=== PATIENT | female | born 1965 | race Caucasian/White ===

== ENCOUNTER → 2017-10-09 | Outpatient (CLI) | payer BC ==
[2017-10-09 12:28] LABS: BASO # 0.1 x10^3/uL (0.0-0.2); BASO % 1 % (0-3); EOS # 0.2 x10^3/uL (0.0-0.7); EOS % 5 % (0-3); HEMATOCRIT 42.5 % (36.0-47.0); HEMOGLOBIN 14.5 g/dL (12.0-15.5); LYMPH # 0.7 x10^3/uL (1.0-4.8); LYMPH % 15 % (24-48); MEAN CORPUSCULAR HEMOGLOBIN 32 pg (25-35); MEAN CORPUSCULAR HGB CONC 34 g/dL (31-37); MEAN CORPUSCULAR VOLUME 93 fL (79-100); MONO # 0.8 x10^3/uL (0.0-1.1); MONO % 17 % (0-9); NEUT # 2.8 x10^3uL (1.8-7.7); NEUT % 62 % (31-73); PLATELET COUNT 293 x10^3/uL (140-400); RED BLOOD COUNT 4.58 x10^6/uL (3.50-5.40); RED CELL DISTRIBUTION WIDTH 13.1 % (11.5-14.5); WHITE BLOOD COUNT 4.6 x10^3/uL (4.0-11.0)
[2017-10-09 12:59] LABS: ALBUMIN 3.4 g/dL (3.4-5.0); CALCIUM 8.8 mg/dL (8.5-10.1); GFR 58.7; MAGNESIUM 1.8 mg/dL (1.8-2.4); POTASSIUM 4.5 mmol/L (3.5-5.1); TOTAL BILIRUBIN 0.5 mg/dL (0.2-1.0); TOTAL PROTEIN 6.8 g/dL (6.4-8.2)
[2017-10-10 02:11] LABS: HEMOGLOBIN A1C 5.1 % (4.8-5.6)
== END | disposition home or self-care (01) ==
LOC: LAB 11:28
PROVIDERS: ATTEND Internal Medicine Pulmonary Disease
DX: G47.62 Sleep related leg cramps (principal); G72.9 Myopathy, unspecified; R06.00 Dyspnea, unspecified
CPT/HCPCS: 36415; 80053; 82306; 83036; 83540; 83735; 84443; 85025

== ENCOUNTER → 2017-12-14 | Outpatient (CLI) | payer BC ==
--- NOTE | 2017-12-14 13:08 | RAD ---
MR#: [id number] Date of Study: 12/14/2017 Ordering Physician: DREW KAM, Referring Physician: SANDRA CARVALHO Tech: RT Bakari Ellison) (N) APPROVED REPORT Test Type: Exercise Stress Nurse/Tech: Marry Hubbard RN Test Indications: Dyspnea on exertion, chest pain Cardiac History: Asthma,, No known cardiac Medications: See Electronic Medical Record Medical History: See Electronic Medical Record Resting ECG: SR Resting Heart Rate: 64 bpm Resting Blood Pressure: 104/71mmHg Pretest Chest Pain: No chest pain Nurse/Tech Notes S1,S2. Lungs clear to auscultation. Consent: The procedure was explained to the patient in lay terms. Informed consent was witnessed. Warren eout was entered into [employer]. History and Stress Test performed by RT Alma (Bharathi) (N) Stress Symptoms Dyspnea POST EXERCISE Reason for Termination: Reached target heart rate, Dyspnea Target HR: Yes Max HR: 169 bpm 100% of Maximum Predicted HR: 169 bpm Exercise duration: 9:55 min:sec, 4 Stage Exercise capacity: 13.4METs Max Blood Pressure: 131/72mmHg Blood Pressure response to exercise: Normal blood pressure response during stress. Heart Rate response to exercise: WNL Chest Pain: No. Arrhythmia: No. INTERPRETATION Stress EKG Conclusion: The resting EKG showed a sinus rhythm with mild nonspecific ST segment changes . The stress EKG showed no significant changes from baseline. No EKG evidence of stressed induced ischemia. Imaging Protocol IMAGE PROTOCOL: Rest Tc-99m/stress Tc-99m 1 day Rest: Stress: Viability: Radiopharm.Tc99m XwgsohgqsVy11g Sestamibi Dose10.5mCi 35.2mCi Duration 15min. 12min. Img Date 12/14/2017 12/14/2017 Inj-Img Yves26vru. 60min. Rest Admin Site:IV - Right ForearmAdministrator:RT Alma (Bharathi)(N) Stress Admin Site: IV - Right ForearmAdministrator: RT Bakari Marquez)(N) STRESS DATA End Diast. Vol.49.0mlAv. Heart Rate84.0bpm End Syst. Vol.2.0mlCO Index BSA0.0L/min Myocardial Mass92.0gEject. Ufraadqc47.0% Stress Rates Pk. Fill Rate4.58EDV/secLVtime Pk. Fill 187.92msec Pk. Empty Rate5.94ESV/secLVtime Pk. Eject82.00msec 1/3 Pk. Fill1.21EDV/sec Stress Scores Regional WT0.00Summed WT0.00 Regional WM0.00Summed WM0.00 LV Perfusion The stress images showed no significant defects. The rest images showed no significant defects. Nuclear imaging shows no reversible ischemia or infarct. Wall Motion Normal left ventricular systolic function with an ejection fraction of greater than 70%. LV Perf. Quant 17 Seg. SSS0.00 17 Seg. SRS0.00 17 Seg. SDS0.00 Stress Defect Extent (% LAD)0.00Rest Defect Extent (% LAD)0.00Rev. Defect Extent (% LAD)0.00 Stress Defect Extent (% LCX) 0.00Rest Defect Extent (% LCX)0.00Rev. Defect Extent (% LCX)0.00 Stress Defect Extent (% RCA)0.00Rest Defect Extent (% RCA)0.00Rev. Defect Extent (% RCA)0.00 Stress Defect Extent (% RASHAWN)0.00Rest Defect Extent (% RASHAWN)0.00Rev. Defect Extent (% RASHAWN)0.00 Conclusion 1. Good exercise tolerance. 2. No chest pain with exertion. 3. No EKG evidence of stressed induced ischemia. 4. Nuclear imaging shows no reversible ischemia or infarct. 5. Normal left ventricular systolic function with an ejection fraction of greater than 70%. 6. Low risk exercise nuclear stress test. Signed by : Micha Dove MD Electronically Approved : 12/14/2017 13:07:20
--- NOTE | 2017-12-14 15:38 | CARD ---
MR#: [id number] Date of Study: 12/14/2017 Ordering Physician: DREW KAM, Referring Physician: DREW KAM Tech: Joan Prince RDCS APPROVED REPORT EXAM: Two-dimensional and M-mode echocardiogram with Doppler and color Doppler. Other Information Quality : Good INDICATION Dyspnea On Exertion 2D DIMENSIONS RVDd2.4 (2.9-3.5cm)Left Atrium(2D)3.0 (1.6-4.0cm) IVSd0.6 (0.7-1.1cm)Aortic Root(2D)2.1 (2.0-3.7cm) LVDd4.4 (3.9-5.9cm)LVOT Diameter1.9 (1.8-2.4cm) PWd0.7 (0.7-1.1cm)LVDs2.9 (2.5-4.0cm) FS (%) 33.6 %SV55.8 ml LVEF(%)60.0 (>50%) Aortic Valve AoV Peak Won.161.3cm/sAoV VTI33.8cm AO Peak GR.10.4mmHgLVOT Peak Won.131.5cm/s LVOT VTI 27.87cmAO Mean GR.6mmHg JAY (VMAX)2.97zq6MTG (VTI)2.46cm2 Mitral Valve MV E Nzbrqdjr12.6cm/sMV DECEL TAYP892fv MV A Ihhlioja94.4cm/sMV AGI96tk E/A Ratio1.5MVA (PHT)3.45cm2 TDI E/Lateral E'7.5E/Medial E'9.6 Tricuspid Valve TR P. Sylszpxz643ju/sRAP BZFDRVTN6psOz TR Peak Gr.85cqVmEADY28cjJo Pulmonary Vein S1 Hfdphspi45.7cm/sD2 Rsermkpd22.4cm/s LEFT VENTRICLE The left ventricle is normal size. There is normal left ventricular wall thickness. The left ventricu lar systolic function is normal and the ejection fraction is within normal range. The Ejection Fracti on is 55-60%. There is normal LV segmental wall motion. The left ventricular diastolic function and f illing is normal for age. RIGHT VENTRICLE The right ventricle is normal size. The right ventricular systolic function is normal. ATRIA The left atrium size is normal. The right atrium size is normal. The interatrial septum is intact wit h no evidence for an atrial septal defect or patent foramen ovale as noted on 2-D or Doppler imaging. AORTIC VALVE The aortic valve is calcified but opens well. Doppler and Color Flow revealed no significant aortic r egurgitation. There is no significant aortic valvular stenosis. MITRAL VALVE The mitral valve is normal in structure and function. There is no evidence of mitral valve prolapse. There is no mitral valve stenosis. Doppler and Color-flow revealed trace mitral regurgitation. TRICUSPID VALVE The tricuspid valve is normal in structure and function. Doppler and Color Flow revealed trace to mil d tricuspid regurgitation. The PA pressure was estimated at 23 mmHg. There is no tricuspid valve sten osis. PULMONIC VALVE The pulmonary valve is normal in structure and function. Doppler and Color Flow revealed trace pulmon ic valvular regurgitation. There is no pulmonic valvular stenosis. GREAT VESSELS The aortic root is normal in size. The ascending aorta is normal in size. The IVC is normal in size a nd collapses >50% with inspiration. PERICARDIAL EFFUSION There is no evidence of significant pericardial effusion. Critical Notification Critical Value: No <Conclusion> The left ventricle is normal size. The left ventricular systolic function is normal and the ejection fraction is within normal range. The Ejection Fraction is 55-60%. There is normal left ventricular wall thickness. There is no significant aortic valvular stenosis. Doppler and Color Flow revealed no significant aortic regurgitation. Doppler and Color-flow revealed trace mitral regurgitation. Doppler and Color Flow revealed trace to mild tricuspid regurgitation. The PA pressure was estimated at 23 mmHg. Signed by : Micha Dove MD Electronically Approved : 12/14/2017 15:37:29
== END | disposition home or self-care (01) ==
LOC: NM 08:46
PROVIDERS: ATTEND Internal Medicine Cardiovascular Disease
DX: R06.09 Other forms of dyspnea (principal); R07.89 Other chest pain; J45.909 Unspecified asthma, uncomplicated
CPT/HCPCS: 78452; 93017; 93306; 96374; 96376; A9500

== ENCOUNTER → 2019-10-05 | Outpatient (CLI) | payer OTHER ==
[~2019-10-05] MED LIST: ACET325T9 PO; CHOL500021 PO; ESTR1TAB24 PO; IOHEXOL 180 MG/ML 10 ML VIAL. ONE; MULT-245 PO; NAPR-683 PO; PANT40TA77 PO; POTA10TA12 PO; methylPREDNISolone ACETATE 40 MG/ML VIAL. ONE; methylPREDNISolone ACETATE 80 MG/ML VIAL. ONE
--- NOTE | 2019-10-05 12:21 | PDOC2 ---
INITIAL PAIN CONSULT DATE OF SERVICE: DOS: DATE: 10/05/19 TIME: 12:14 CHIEF COMPLAINT: Chief Complaint: Low back and right lower extremity pain HISTORY OF PRESENT ILLNESS: 53-year-old female presents history of pain low back right lower extremity for about 2 months after bicycling and exercising. Patient reports no specific injury or accident that she is aware of. Patient reports pain is in the low back right lower extremity traveling into the posterior gluteus posterior thigh and calf to the level of the foot and toes at times mostly in the calf and the thigh patient describes the pain as aching burning radiating intermittent intensity but always present to some extent patient ports that sharp in the back as well as occasionally into the right lower leg and calf. Patient is on phy sical therapy also chiropractic treatment with some improvement only temporarily. Patient continues to exercise on her own and [employer] exercises well. Patient is tried prednisone Dosepaks also naproxen and Tylenol none of which have been decreasing the pain significantly. Patient rates her disability rating from 0-10 10 being the worst is a 6 with recreation 0 in all other rizwana gories except life support activities which is a 2 on a scale of 10 specifically with sleeping. Patient rates pain awakens her from sleep release twice a night does not affect her bowel bladder control but can affect her ability to walk. Patient not use any assistive devices to ambulate. Patient did have MRI scan lumbar spine showing mild disc desiccation and small posterior disc protrusion and annular fissure at L5-S1 without significant central spinal or neuroforaminal narrowing. PAST MEDICAL HISTORY: PMH: Crohn's disease, asthma, anemia PREVIOUS SURGERIES: Past Surgical Hx: Partial hysterectomy 2000 left inguinal hernia repair 1995 partial colectomy 2009 195 in 1989 appendectomy 2009 CURRENT MEDICATIONS: Current Meds: Active Scripts Medications Dose Route/Sig Max Daily Dose Days Date Category D3-50 (Cholecalciferol (Vitamin D3)) 50,000 Unit Capsule 50,000 Unit PO WEEKLY 10/05/19 Reported Pantoprazole Sodium (Pantoprazole Sodium) 40 Mg Tablet.dr 40 Mg PO DAILYAC PRN 10/05/19 Reported Multi Vitamin Daily (Multivitamin) 1 Each Tablet 1 Tab PO DAILY 30 10/05/19 Reported Klor-Con 10 (Potassium Chloride) 10 Meq Tablet.er 1 Tab PO DAILY 10/05/19 Reported Eemt Ds 1.25-2.5 Mg Tablet (Estrogen,Shanti/Me-Testosterone) 1 Each Tablet 1 Tab PO DAILY MDD 1 Tablet(s) 30 10/05/19 Reported Tylenol (Acetaminophen) 325 Mg Tablet 1-2 Tab PO QID 10/05/19 Reported Naprosyn (Naproxen) 500 Mg Tablet 1 Tab PO BID 30 10/05/19 Reported ALLERGIES; Allergies: Coded Allergies: infliximab (Verified Allergy, Intermediate, 10/05/19) Uncoded Allergies: SULFA (Allergy, Mild, SHORT OF BREATH, 12/14/17) FAMILY HISTORY: Family Hx: Diabetes, Crohn's disease SOCIAL HISTORY: Social Hx: Patient drinks alcohol about once or twice a week does not smoke, does not use any illegal illicit or recreational drugs is single lives locally in [facility] REVIEW OF SYSTEMS: ROS: Positive for those items mentioned in history of present illness is complete full and well-documented on patient's chart. PHYSICAL EXAM: VS: Blood pressure is 120/72 pulse 67 respirations 18 temperature 98.0 F height is 5 foot 4 inches weight is 139 pounds PE: PHYSICAL EXAMINATION: GENERAL: The patient is awake, alert, oriented, appropriate, very pleasant demeanor HEENT: Shows normocephalic, atraumatic. Extraocular movements are intact and symmetrical. Oral cavity: Mucous membranes moist and pink. Dentition is intact . NECK: Shows anterior throat supple without palpable lymphadenopathy noted. Swallow reflex symmetrical. CHEST: Shows normal on inspection. Breath sounds are clear bilaterally, no rales rhonchi or wheezes auscultated. HEART: Shows S1, S2 clear. No murmurs auscultated. ABDOMEN: Soft, nontender, nondistended. No palpable organomegaly is noted. No rebound or guarding demonstrated. BACK: Shows spine grossly in the midline. Normal-appearing cervical lordotic curvature. There is slightly increased thoracic kyphosis, some minor flattening of the lumbar lordotic curvature. Lumbar paraspinous muscles show symmetrical on inspection, on palpation shows some moderate tenderness diffusely throughout the upper, middle and lower distribution of the paraspinous muscles bilaterally without specific trigger points, without radiation of pain. The patient has good rotational motion of the lumbar spine, both laterally as well as extension and flexion without significant difficulty. No tenderness over the spinous processes, sacrum or sacroiliac regions. EXTREMITIES: Lower extremities show deep tendon reflexes 2+ in the patellar and tendo calcaneus tendons. Motor exam is 4 on a scale of 5 with right dorsiflexion, extension, quadriceps and hamstring flexion and 5/5 on the left. Peripheral pulses are 1+ posterior tibial. No peripheral edema is noted bilaterally. Lower extremities are warm and dry to touch, equal in color and appearance. Gaenslen's and Celso's maneuvers are negative as well. The patient is able to stand, stand on her toes without significant difficulty or loss of balance walks with a normal-appearing gait does not appear to favor the right or left lower extremity significantly and does not use any assistive devices to ambulate.. SKIN: Shows warm and dry, good turgor. No edema. No sores, rashes or bruising throughout. IMPRESSION: Impression: This is a 53-year-old female with approximate 2-month history increasing pain low back right lower extremity radicular fashion. MRI scan lumbar spine as noted History of Crohn's disease Plan: Options were discussed with the patient including conservative medical management physical therapies interventional techniques and she like to pursue interventional techniques. We discussed a lumbar epidural steroid injection his description as well as anatomical models to describe the procedure. Risks are then discussed including but not limited to bleeding infection possibility of epidural hematoma subsequent neurological compromise dural puncture headache spinal cord and or nerve damage side effects of steroid medication and poor results regarding pain control. Patient understands wished to proceed. Patient return to clinic in approximate 2 weeks for follow-up was counseled as to return appointment activity level and side effects to be aware. Procedure is lumbar epidural steroid injection under local anesthetic using sterile prep and drape at the L5-S1 level using C-arm fluoroscopic guidance in both AP and lateral views medications injected is 120 mg Depo-Medrol + 10 mL preservative-free normal saline and 2 mL contrast- condition at discharge is stable patient tolerated procedure well had no complications. ANTHONY RED MD Oct 05, 2019 12:21
== END | disposition home or self-care (01) ==
LOC: PNCL 10:21
PROVIDERS: ATTEND Anesthesiology
DX: M54.5 Low back pain (principal); M79.661 Pain in right lower leg; J45.909 Unspecified asthma, uncomplicated; Z88.2 Allergy status to sulfonamides; Z88.8 Allergy status to other drugs, medicaments and biological substances; Z98.890 Other specified postprocedural states; Z79.899 Other long term (current) drug therapy; Z83.3 Family history of diabetes mellitus
CPT/HCPCS: 62323; J1030; J1040; Q9965

== ENCOUNTER → 2019-10-19 | Outpatient (CLI) | payer OTHER ==
--- NOTE | 2019-10-19 09:58 | PDOC ---
Progress Note - Pain Clinic Date of Service: DOS: DATE: 10/19/19 TIME: 09:55 Diagnosis: Dx: Lumbar radiculopathy with lumbar degenerative disc disease History or Present Illness: HPI: 53-year-old female returns follow-up status post lumbar epidural to injection x1. Patient reports 100% improvement for a few days the injection now the pain is returning slightly in the low back and right lower extremity posterior gluteus posterior thigh posterior calf worse with activity exercising bicycle riding. Patient reports initially doing very well with increased activity with greater ease with walking doing work activities household activities recreational activities and bicycle riding patient ports he still doing well at night not waking her from sleep at night patient reports the pain is a 5 on a scale of 10 is worse over the past week 3 on average 0 is least is a 3 today patient ports in the low back posterior gluteus and right lower extremity described as tingling and burning with radiating pain in the leg also some aching pain in the low back itself. Patient reports no new motor or sensory deficits no new bowel or bladder incontinence or other complaints. Physical Exam: VS: Pressure is 119/69 pulse 63 respirations 18 temperature 98.6 F weight is 134 pounds PE: PHYSICAL EXAMINATION: GENERAL: The patient is awake, alert, oriented, appropriate, very pleasant demeanor HEENT: Shows normocephalic, atraumatic. Extraocular movements are intact and symmetrical. Oral cavity: Mucous membranes moist and pink. NECK: Shows anterior throat supple without palpable lymphadenopathy noted. Swallow reflex symmetrical. CHEST: Shows normal on inspection. Breath sounds are clear bilaterally. HEART: Shows S1, S2 clear. No murmurs auscultated. ABDOMEN: Soft, nontender, nondistended. No palpable organomegaly is noted. No rebound or guarding demonstrated. BACK: Shows spine grossly in the midline. Normal-appearing cervical lordotic curvature. There is slightly increased thoracic kyphosis, some minor flattening of the lumbar lordotic curvature. Lumbar paraspinous muscles show symmetrical on inspection, on palpation shows some moderate tenderness diffusely throughout the upper, middle and lower distribution of the paraspinous muscles bilaterally ,but without specific trigger points, without radiation of pain. The patient has good rotational motion of the lumbar spine, both laterally as well as extension and flexion without significant difficulty. No tenderness over the spinous processes, sacrum or sacroiliac regions. EXTREMITIES: Lower extremities show deep tendon reflexes 2+ in the patellar and tendo calcaneus tendons. Motor exam is 5 on a scale of 5 with right dorsiflexion, extension, quadriceps and hamstring flexion and 5/5 on the left. Peripheral pulses are 1+ posterior tibial. No peripheral edema is noted bilaterally. Lower extremities are warm and dry to touch, equal in color and appearance. SKIN: Shows warm and dry, good turgor. No edema. No sores, rashes or bruising throughout. Procedure: Procedure: Options were discussed with the patient. Patient will chart reviewed his rec urrent medication regimen updated current review of systems updated today as well. We will proceed with a second in the series lumbar epidural steroid injection today with fluoroscopic guidance. Risks were discussed including but not limited to: Bleeding, infection, possibility of epidural hematoma and subsequent neurological compromise, dural puncture, headaches, spinal cord and /or nerve damage, side effects of steroid medication, and poor results regarding pain control. Patient understands wished to proceed. Patient return to clinic in approximately 2 weeks for follow-up was counseled as to return appointment activity level and side effects to be aware of. Medication Injected: Med Injected: Procedure is lumbar epidural steroid injection under local anesthetic using sterile prep and drape at the L5-S1 level using C-arm fluoroscopic guidance in both AP and lateral views medications injected is 120 mg Depo-Medrol + 10 mL preservative-free normal saline and 2 mL contrast- condition at discharge is stable patient tolerated procedure well had no complications. Condition at Discharge: Condition at Discharge: Condition at discharge stable patient tolerated procedure well had no complications. ANTHONY RED MD Oct 19, 2019 09:58
== END | disposition home or self-care (01) ==
LOC: PNCL 09:18
PROVIDERS: ATTEND Anesthesiology
DX: M51.16 Intervertebral disc disorders with radiculopathy, lumbar region (principal); J45.909 Unspecified asthma, uncomplicated; Z88.2 Allergy status to sulfonamides; Z88.8 Allergy status to other drugs, medicaments and biological substances; Z79.899 Other long term (current) drug therapy; Z83.3 Family history of diabetes mellitus
CPT/HCPCS: 62323; J1030; J1040; Q9965

== ENCOUNTER → 2020-02-28 | Outpatient (CLI) | payer OTHER ==
[~2020-02-28] MED LIST changes: +CETI10TA74 PO; +GADOTERATE 7.5 MMOL/15ML VIAL. IVP ONE; +IBUP100T7 PO; -IOHEXOL 180 MG/ML 10 ML VIAL. ONE; -methylPREDNISolone ACETATE 40 MG/ML VIAL. ONE; -methylPREDNISolone ACETATE 80 MG/ML VIAL. ONE
--- NOTE | 2020-02-28 16:51 | KCIC ---
Study: MRI of the right hip with and without contrast INDICATION: Right hip lesion. Limited range of motion. No known injury. COMPARISON: Correlation is made to a report from a right hip/femur radiographs from 02/22/2020. TECHNIQUE: Multiplanar MR imaging of the right hip performed both prior to and after the intravenous administration of 10 cc Clariscan. FINDINGS: Bones/hip: The full csxvb-ik-qkue coronal STIR sequence includes both hip joints, the entirety of the pelvis and a portion of the lower lumbar spine. No acute fracture, manifestations of stress injury o r focally aggressive marrow signal abnormality. There is disc desiccation and a degree of disc space height loss at L5-S1 with mild degenerative endplate changes at the superior aspect of S1. Smaller fi eld-of-view images centered on the right hip are notable only for a small, well-circumscribed cystic focus with a sclerotic rim at the anterior femoral neck typical of a synovial herniation pit. This me asures up to 5.5 mm. No avascular necrosis. Labrum/cartilage: Multifocal degenerative tearing of the right acetabular labrum most pronounced ante rior/superior. Chondral thinning involving both the acetabulum and femoral head and with a high-grade full-thickness defect at the superolateral aspect of the acetabulum with trace subchondral marrow ed angelo, image 11 series 8. Ligamentum teres: The right ligamentum teres is hypertrophied and exhibits intermediate T2 signal jose rafael vation but intact fibers remain visualized in keeping with degeneration and partial tearing approachi ng the fovea capitis. Greater trochanteric bursa: No findings of greater trochanteric bursitis on either side. Musculotendinous: No acute/high-grade tear or advanced tendinosis to include the gluteal tendons, alejandro opsoas, rectus femoris femoris, adductors and common hamstrings. Note is made of more pronounced but still mild tendinosis at the left common hamstring origin. Muscular bulk is relatively symmetric when comparing to the left. Miscellaneous: Small right hip joint effusion with mild synovitis but no pericapsular edema. No mass effect on the sciatic nerve bundle. Size. No unexpected abnormality appreciated throughout the partia lly assessed pelvis. IMPRESSION: 1. No acute or aggressive osseous process. The abnormality described on the recent radiographs corre sponds to a small synovial herniation pit within the femoral neck. 2. Multifocal degenerative tearing of the labrum most pronounced anterior/superior. Acetabular more so than femoral head chondral loss with a focal high-grade or full-thickness defect at the superolate ral acetabulum with minimal subjacent subchondral edema. 3. Degeneration and partial tearing of the ligamentum teres as it approaches the fovea. 4. Small right hip joint effusion with mild synovitis. No pericapsular soft tissue or marrow edema t o suggest an inflammatory arthritis and this is favored reactive to degenerative changes as described . 5. No high-grade or full-thickness tendon tear or advanced tendinosis about the right hip. Electronically signed by: DYLAN DANIEL MD (02/28/2020 4:49 PM) [id number]
== END ==
LOC: KCIC MRI 14:12
PROVIDERS: ATTEND Internal Medicine Pulmonary Disease
DX: M16.11 Unilateral primary osteoarthritis, right hip (principal); M25.451 Effusion, right hip
CPT/HCPCS: 73723; A9575

== ENCOUNTER 2021-02-15 16:58 | Inpatient (IN) | payer OTHER ==
[~2021-02-15] VITALS: Ht 162.6 cm; Wt 66.3 kg
[~2021-02-15 16:58] MED LIST changes: -GADOTERATE 7.5 MMOL/15ML VIAL. IVP ONE
--- NOTE | 2021-02-15 17:32 | PHYS DOC ---
General Adult EDM: Chief Complaint: NAUSEA/VOMITING/DIARRHEA HPI: HPI: Patient is a 55 year old female who presents with generalized abdominal discomfort and cramping as well as nausea and vomiting. Symptoms began around 2:00 this morning. She has not been able to pass much flatus. She had one small formed bowel movement earlier today. She denies any focal abdominal pain. She denies chest pain or dyspnea. She denies cough. She denies fevers or chills. She does report some concentrated urine with mild dysuria. Denies gross hematuria. She has had multiple previous abdominal surgeries, including abdominal plasty and partial colectomy. No previous history of bowel obstruct ions or ileus that she knows of. She is fully vaccinated against COVID-19. No recent sick contacts or travel history. No recent antibiotics. She had been taking Phenergan suppositories at home without any success, she is still vomiting. (RUBI FUENTES DO) Review of Systems: Review of Systems: Constitutional: Denies fever or chills. [] Respiratory: Denies cough or shortness of breath. [] Cardiovascular: Denies chest pain or edema. [] GI: Generalized abdominal pain, nausea, vomiting, decreased flatus. : Decreased urination, mild dysuria Musculoskeletal: Denies back pain or joint pain. [] Integument: Denies rash. [] Neurologic: Denies headache, focal weakness or sensory changes. [] Psychiatric: Denies depression or anxiety. [] (RUBI FUENTES DO) Heart Score: C/O Chest Pain: No Risk Factors: Risk Factors: DM, Current or recent (<one month) smoker, HTN, HLP, family history of CAD, obesity. Risk Scores: Score 0 - 3: 2.5% MACE over next 6 weeks - Discharge Home Score 4 - 6: 20.3% MACE over next 6 weeks - Admit for Clinical Observation Score 7 - 10: 72.7% MACE over next 6 weeks - Early Invasive Strategies (RUBI FUENTES DO) C/O Chest Pain: No (FERNANDEZ KIMBALL MD) Allergies: Allergies: Allergies Coded Allergies Type Severity Reaction Last Updated Verified Sulfa (Sulfonamide Antibiotics) Allergy Severe SHORTNESS OF BREATH 02/15/21 Yes infliximab Allergy Severe ANAPHYLAXIS 02/15/21 Yes (RUBI FUENTES DO) Physical Exam: PE: Constitutional: Well developed, well nourished, no acute distress, non-toxic a ppearance. She does appear to be uncomfortable, she is not in significant distress HENT: Normocephalic, atraumatic Eyes: No scleral icterus Neck: Normal range of motion, no tenderness, supple, no stridor. [] Cardiovascular:Heart rate regular rhythm, +2 radial and posterior [place] pedis pulses bilaterally, no peripheral edema, warm and well-perfused Lungs & Thorax: Bilateral breath sounds clear to auscultation [] Abdomen: Abdomen is soft, nondistended, normal bowel sounds, tenderness to palpation the periumbilical, left upper quadrant and left mid abdomen and less over the left lower quadrant. Mild voluntary guarding, no rebound tenderness. No right lower quadrant tenderness, no palpable masses organomegaly. No CVA tenderness. No palpable pulsatile mass. No flank abdominal ecchymoses. Skin: Warm, dry, no erythema, no rash. No jaundice. Back: No tenderness, no CVA tenderness. [] Extremities: No tenderness, no cyanosis, no clubbing, ROM intact, no edema. No calf tenderness. Neurologic: Alert and oriented X 3, normal motor function, normal sensory function, no focal deficits noted. [] Psychologic: Affect normal, judgement normal, mood normal. She is pleasant and cooperative. (RUBI FUENTES DO) EKG: EKG: [] (RUBI FUENTES DO) Radiology/Procedures: Radiology/Procedures: [] (RUBI FUENTES DO) Radiology/Procedures: [facility] [address] [place], [place] [id number] IMAGING REPORT Signed PATIENT: AIYANA GUZMÁN ACCOUNT: [id number] : 1965 LOCATION: ER AGE: 55 SEX: F EXAM STATUS: REG ER ORD. PHYSICIAN: RUBI FUENTES DO REASON: abd pain, n/v, OMNI 300 60 ML IV PROCEDURE: CT ABD PELV W/ IV CONTRST ONLY CT STUDY OF THE ABDOMEN AND PELVIS WITH CONTRAST Clinical indications: Abdominal pain with nausea and vomiting. TECHNIQUE: After IV infusion of and 60 cc of Omnipaque 300, helical CT scanning of the abdomen and pelvis was performed. GI contrast was not administered. This may decrease the sensitivity to detect GI tract pathology. PQRS COMPLIANCE STATEMENT One or more of the following individualized dose reduction techniques were utilized for this study: 1. Automated exposure control 2. Adjustment of the mA and/or kV according to patient size 3. Use of iterative reconstruction technique COMPARISON: None available. FINDINGS: The liver and spleen and pancreas are unremarkable. The gallbladder is normal and no extrahepatic biliary ductal dilatation is seen. No adrenal mass is evident. Both kidneys are normal without hydronephrosis or hydroureter. Distal right ureter and the right side of the anatomic pelvis are obscured from streaking artifact from right hip prosthesis. Urinary bladder is not distended. No renal mass is seen. No urinary tract stone is evident. The uterus appears to be surgically absent. No focal aneurysmal dilatation of the abdominal aorta is seen. No enlarged abdominal or pelvic lymphadenopathy is seen. Ileocolostomy is apparent. There is dilatation of small bowel loops with bowel wall thickening within the left side abdomen and the lower abdomen. There is a caliber change present within the pelvis. The findings are consistent with a mid to distal small bowel obstruction. No free air or free fluid or mesenteric edema is seen. No lung base consolidation is evident. No lytic process is seen. IMPRESSION: Mid to distal small bowel obstruction. No free air or free fluid. Electronically signed by: Dashawn Lindsey MD (02/15/2021 8:18 PM) [id number] DICTATED and SIGNED BY: DASHAWN LINDSEY MD DATE: 02/15/21 [id number] (FERNANDEZ IKMBALL MD) Course & Med Decision Making: Course & Med Decision Making Pertinent Labs and Imaging studies reviewed. (See chart for details) I have discussed the findings, differential diagnosis and plan of care with the patient. She is given IV fluids, IV Zofran. She declined any pain medication. CT of the abdomen pelvis is ordered to rule out any acute surgical intra- abdominal pathology, ileus or bowel obstruction. Her laboratory exams are unremarkable. She has not yet provided a urine sample. I am transferring care to Dr. Kimball to follow-up on UA and CT of the abdomen and pelvis. The patient is resting comfortably, she reports improvement in nausea symptoms. She is comfortable with the plan for CT, with disposition plan pending. (GINA,RUBI M DO) Course & Med Decision Making Patient admitted to hospitalist with surgery consult (FERNANDEZ KIMBALL MD) Dragon Disclaimer: Lulú Disclaimer: This electronic medical record was generated, in whole or in part, using a voice recognition dictation system. (RUBI FUENTES DO) Departure Departure Impression: Primary Impression: Nausea and vomiting Additional Impression: SBO (small bowel obstruction) Disposition: ADMITTED INPATIENT Admitting Physician: HIMLilian (FERNANDEZ KIMBALL MD) Condition: STABLE Referrals: VALDEZ BRAN MD (PCP) Scripts Ondansetron Hcl (ONDANSETRON HCL) 4 Mg Tablet 1 TAB PO PRN Q6HRS for vomiting, #30 TAB 1 Refill Prov: RUBI FUENTES DO 02/15/21 RUBI FUENTES DO Feb 15, 2021 17:32 FERNANDEZ KIMBALL MD Feb 15, 2021 23:52
[2021-02-15] MEDS ORDERED: ONDANSETRON PF 4 MG/2 ML VIAL. IVP ONE (17:45)
[2021-02-15] MEDS ORDERED: IV NORMAL SALINE 1000ML BAG 1,000 ML IV ONE ×2 (17:45→19:45)
[2021-02-15 18:10] LABS: BASO % 0 % (0-3); EOS % 0 % (0-3); HEMATOCRIT 40.4 % (36.0-47.0); HEMOGLOBIN 13.7 g/dL (12.0-15.5); LYMPH # 0.4 x10^3/uL (1.0-4.8); LYMPH % 4 % (24-48); MEAN CORPUSCULAR HEMOGLOBIN 29 pg (25-35); MEAN CORPUSCULAR HGB CONC 34 g/dL (31-37); MEAN CORPUSCULAR VOLUME 85 fL (79-100); MONO # 0.6 x10^3/uL (0.0-1.1); MONO % 7 % (0-9); NEUT # 7.8 x10^3/uL (1.8-7.7); NEUT % 88 % (31-73); PLATELET COUNT 264 x10^3/uL (140-400); RED BLOOD COUNT 4.73 x10^6/uL (3.50-5.40); RED CELL DISTRIBUTION WIDTH 17.1 % (11.5-14.5); WHITE BLOOD COUNT 8.9 x10^3/uL (4.0-11.0)
[2021-02-15 18:21] LABS: CALCIUM 8.8 mg/dL (8.5-10.1); GFR 57.8; POTASSIUM 4.2 mmol/L (3.5-5.1)
[2021-02-15 18:27] LABS: ALBUMIN 3.2 g/dL (3.4-5.0); TOTAL BILIRUBIN 0.7 mg/dL (0.2-1.0); TOTAL PROTEIN 6.5 g/dL (6.4-8.2)
[2021-02-15] MEDS ORDERED: ONDA-84 PO (19:11)
[2021-02-15 19:12] LABS: BILIRUBIN,URINE SMALL (NEG); CLARITY,URINE CLEAR; COLOR,URINE YELLOW; NITRITE,URINE NEGATIVE (NEG); PH,URINE 5.5 (<5.0-8.0); PROTEIN,URINE NEGATIVE (NEG-TRACE); UROBILINOGEN,URINE 0.2 mg/dL (0.2 mg/dL)
[2021-02-15] MEDS ORDERED: CONTRAST GIVEN. MC PRN (19:15)
[2021-02-15] MEDS ORDERED: IOHEXOL 300 MG/ML 100ML VIAL. IV ONE (19:15)
[2021-02-15 19:21] LABS: BACTERIA,URINE FEW /HPF (0-FEW); RBC,URINE 0 /HPF (0-2)
--- NOTE | 2021-02-15 20:20 | RAD ---
CT STUDY OF THE ABDOMEN AND PELVIS WITH CONTRAST Clinical indications: Abdominal pain with nausea and vomiting. TECHNIQUE: After IV infusion of and 60 cc of Omnipaque 300, helical CT scanning of the abdomen and pe lvis was performed. GI contrast was not administered. This may decrease the sensitivity to detect GI tract pathology. PQRS COMPLIANCE STATEMENT One or more of the following individualized dose reduction techniques were utilized for this study: 1. Automated exposure control 2. Adjustment of the mA and/or kV according to patient size 3. Use of iterative reconstruction technique COMPARISON: None available. FINDINGS: The liver and spleen and pancreas are unremarkable. The gallbladder is normal and no extrah epatic biliary ductal dilatation is seen. No adrenal mass is evident. Both kidneys are normal without hydronephrosis or hydroureter. Distal right ureter and the right side of the anatomic pelvis are obs cured from streaking artifact from right hip prosthesis. Urinary bladder is not distended. No renal m ass is seen. No urinary tract stone is evident. The uterus appears to be surgically absent. No focal aneurysmal dilatation of the abdominal aorta is seen. No enlarged abdominal or pelvic lymphadenopathy is seen. Ileocolostomy is apparent. There is dilatation of small bowel loops with bowel wall thicken ing within the left side abdomen and the lower abdomen. There is a caliber change present within the pelvis. The findings are consistent with a mid to distal small bowel obstruction. No free air or free fluid or mesenteric edema is seen. No lung base consolidation is evident. No lytic process is seen. IMPRESSION: Mid to distal small bowel obstruction. No free air or free fluid. Electronically signed by: Gabo Lindsey MD (02/15/2021 8:18 PM) [id number]
[2021-02-15] MEDS ORDERED: ONDANSETRON PF 4 MG/2 ML VIAL. IVP PRN ×2 (20:45→21:45)
[2021-02-15] MEDS: fentaNYL PF VIAL 100 MCG/2 ML VIAL IVP PRN (20:57)
[2021-02-15] MEDS: IV NORMAL SALINE 1000ML BAG 1,000 ML IV SCH (21:17)
[2021-02-15] MEDS ORDERED: ACETAMINOPHEN 650 MG SUPP.RECT. PR PRN (21:30)
[2021-02-15] MEDS ORDERED: BISACODYL 10 MG SUPP.RECT. PR PRN (21:30)
[2021-02-15] MEDS ORDERED: diphenhydrAMINE 50 MG/ML VIAL IVP PRN (21:30)
[2021-02-15] MEDS ORDERED: HYDROmorphone 2 MG/ML INJ. IVP PRN (21:45)
[2021-02-15 23:30] VITALS: BP 100/49
[2021-02-16 03:19] VITALS: BP 85/51
[2021-02-16] MEDS ORDERED: CETI10TA16 PO (05:27)
[2021-02-16] MEDS ORDERED: NAPR-514 PO (05:27)
[2021-02-16] MEDS ORDERED: ACET325T21 AC (05:27)
[2021-02-16] MEDS ORDERED: IBUP200T58 PO (05:27)
[2021-02-16 06:27] LABS: BASO % 0 % (0-3); EOS # 0.2 x10^3/uL (0.0-0.7); EOS % 4 % (0-3); HEMATOCRIT 32.3 % (36.0-47.0); HEMOGLOBIN 10.7 g/dL (12.0-15.5); LYMPH # 0.6 x10^3/uL (1.0-4.8); LYMPH % 13 % (24-48); MEAN CORPUSCULAR HEMOGLOBIN 29 pg (25-35); MEAN CORPUSCULAR HGB CONC 33 g/dL (31-37); MEAN CORPUSCULAR VOLUME 87 fL (79-100); MONO # 0.7 x10^3/uL (0.0-1.1); MONO % 15 % (0-9); NEUT # 2.9 x10^3/uL (1.8-7.7); NEUT % 67 % (31-73); PLATELET COUNT 217 x10^3/uL (140-400); RED BLOOD COUNT 3.73 x10^6/uL (3.50-5.40); RED CELL DISTRIBUTION WIDTH 17.4 % (11.5-14.5); WHITE BLOOD COUNT 4.3 x10^3/uL (4.0-11.0)
[2021-02-16 07:03] LABS: ALBUMIN 2.2 g/dL (3.4-5.0); ALBUMIN/GLOBULIN RATIO 0.9 (1.0-1.7); CALCIUM 7.1 mg/dL (8.5-10.1); CREATININE 0.9 mg/dL (0.6-1.0); GFR 65.2; POTASSIUM 3.8 mmol/L (3.5-5.1); TOTAL BILIRUBIN 0.7 mg/dL (0.2-1.0); TOTAL PROTEIN 4.7 g/dL (6.4-8.2)
[2021-02-16 07:15] VITALS: BP 89/54
[2021-02-16] MEDS ORDERED: CETIRIZINE HCL 10 MG TABLET. PO PRN (09:15)
[2021-02-16] MEDS ORDERED: PANTOPRAZOLE 40 MG TABLET.DR. PO PRN (09:15)
--- NOTE | 2021-02-16 09:48 | PDOC2 ---
CONSULT Date of Consult Date of Consult DATE: 02/16/21 TIME: 09:44 History of Present Illness Reason for Visit: The patient is a 55 year old female who was admitted due to abdominal pain and vomiting. This began yesterday with crampy pain across the mid abdomen. She has not been able to pass gas or stool since yesterday. Since arriving to the hospital her pain has improved and she has not continued to vomit. She has a history of Crohn's disease and has had 1 prior ileocolic resection. She has not been on Crohn's treatment for quite some time. Past Medical History Past Medical History Crohn's disease Past Surgical History Past Surgical History Laparoscopic ileocolic resection, hip replacement, abdominoplasty Social History No ALCOHOL: social Drugs: None Current Problem List Problem List Problems Medical Problems: (1) Generalized abdominal pain Status: Acute (2) Nausea and vomiting Status: Acute Current Medications Current Medications Current Medications Sodium Chloride 1,000 ml @ 1,000 mls/hr 1X ONCE IV Last administered on 02/15/21at 17:44; Start 02/15/21 at 17:45; Stop 02/15/21 at 18:44; Status DC Ondansetron HCl (Zofran) 4 mg 1X ONCE IVP Last administered on 02/15/21at 17:45; Start 02/15/21 at 17:45; Stop 02/15/21 at 17:46; Status DC Iohexol (Omnipaque 300 Mg/ml) 60 ml 1X ONCE IV Last administered on 02/15/21at 19:22; Start 02/15/21 at 19:15; Stop 02/15/21 at 19:16; Status DC Info (CONTRAST GIVEN -- Rx MONITORING) 1 each PRN DAILY PRN MC SEE COMMENTS; Start 02/15/21 at 19:15; Stop 02/17/21 at 19:14 Sodium Chloride 1,000 ml @ 1,000 mls/hr 1X ONCE IV Last administered on 02/15/21at 19:45; Start 02/15/21 at 19:45; Stop 02/15/21 at 20:44; Status DC Ondansetron HCl (Zofran) 4 mg PRN Q8HRS PRN IVP NAUSEA/VOMITING; Start 02/15/21 at 20:45; Stop 02/15/21 at 21:33; Status DC Fentanyl Citrate (Fentanyl 2ml Vial) 50 mcg PRN Q1HR PRN IVP PAIN Last administered on 02/15/21at 20:57; Start 02/15/21 at 20:45 Sodium Chloride 1,000 ml @ 75 mls/hr [id number] IV Last administered on 02/15/21at 21:17; Start 02/15/21 at 20:45; Stop 02/16/21 at 20:44 Ondansetron HCl (Zofran) 4 mg PRN Q4HRS PRN IVP NAUSEA/VOMITING; Start 02/15/21 at 21:45 Bisacodyl (Dulcolax Supp) 10 mg PRN DAILY PRN OR CONSTIPATION; Start 02/15/21 at 21:30 Acetaminophen (Tylenol Supp) 650 mg PRN Q6HRS PRN OR MILD PAIN / TEMP > 100.3'F; Start 02/15/21 at 21:30 Diphenhydramine HCl (Benadryl) 25 mg PRN Q4HRS PRN IVP Insomnia/Nausea/Itching; Start 02/15/21 at 21:30 Hydromorphone HCl (Dilaudid) 0.5 mg PRN Q3HRS PRN IVP SEVERE PAIN 7-10; Start 02/15/21 at 21:45 Cetirizine HCl (ZyrTEC) 10 mg PRN DAILY PRN PO ALLERGIES; Start 02/16/21 at 09:15 Pantoprazole Sodium (Protonix) 40 mg DAILYAC PRN PO gerd; Start 02/16/21 at 09:15 Ergocalciferol (Vitamin D2) 50,000 unit WEEKLY PO ; Start 02/17/21 at 09:00 Non-Formulary Medication (Estrogen,Shanti/ Me-Testosterone (Eemt Ds 1.25-2.5 Mg Tablet)) 1 tab DAILY PO ; Start 02/17/21 at 09:00; Status UNV Active Scripts Active Reported Acetaminophen 325 Mg Tablet 325 Mg AC PRN Naproxen 500 Mg Tablet 500 Mg PO PRN PRN Advil (Ibuprofen) 200 Mg Tablet 200 Mg PO PRN Cetirizine Hcl 10 Mg Tablet 10 Mg PO DAILY PRN D3-50 (Cholecalciferol (Vitamin D3)) 50,000 Unit Capsule 50,000 Unit PO WEEKLY Pantoprazole Sodium (Pantoprazole Sodium) 40 Mg Tablet. 40 Mg PO DAILYAC PRN Eemt Ds 1.25-2.5 Mg Tablet (Estrogen,Shanti/Me-Testosterone) 1 Each Tablet 1 Tab PO DAILY MDD 1 Tablet(s) 30 Days Allergies Allergies: Coded Allergies: Sulfa (Sulfonamide Antibiotics) (Verified Allergy, Severe, SHORTNESS OF BREATH, 02/15/21) infliximab (Verified Allergy, Severe, ANAPHYLAXIS, 02/15/21) ROS General: No: Chills, Night Sweats, Fatigue, Malaise, Appetite, Other PSYCHOLOGICAL ROS: No: Anxiety, Behavioral Disorder, Concentration difficultie, Decreased libido, Depression, Disorientation, Hallucinations, Hostility, Irritablity, Memory difficulties, Mood Swings, Obsessive thoughts, Physical abuse, Sexual abuse, Sleep disturbances, Suicidal ideation, Other Eyes: No Blurry vision, No Decreased vision, No Double vision, No Dry eyes, No Excessive tearing, No Eye Pain, No Itchy Eyes, No Loss of vision, No Photophobia, No Scotomata, No Uses contacts, No Uses glasses, No Other HEENT: No: Heacaches, Visual Changes, Hearing change, Nasal congestion, Nasal discharge, Oral lesions, Sinus pain, Sore Throat, Epistaxis, Sneezing, Snoring, Tinnitus, Vertigo, Vocal changes, Other ALLERGY AND IMMUNOLOGY: No: Hives, Insect Bite Sensitivity, Itchy/Watery Eyes, Nasal Congestion, Post Nasal Drip, Seasonal Allergies, Other Hematological and Lymphatic: No: Bleeding Problems, Blood Clots, Blood Transfusions, Brusing, Night Sweats, Pallor, Swollen Lymph Nodes, Other ENDOCRINE: No: Breast Changes, Galactorrhea, Hair Pattern Changes, Hot Flashes, Malaise/lethargy, Mood Swings, Palpitations, Polydipsia/polyuria, Skin Changes, Temperature Intolerance, Unexpected Weight Changes, Other Respiratory: No: Cough, Hemoptysis, Orthopnea, Pleuritic Pain, Shortness of breath, SOB with excertion, Sputum Changes, Stridor, Tachypnea, Wheezing, Other Cardiovascular: No Chest Pain, No Palpitations, No Orthopnea, No Paroxysmal Noc. Dyspnea, No Edema, No Lt Headedness, No Other Gastrointestinal: Yes Vomiting, Yes Abdominal Pain Genitourinary: No Dysuria, No Frequency, No Incontinence, No Hematuria, No Retention, No Discharge, No Urgency, No Pain, No Flank Pain, No Other, No , No , No , No , No , No , No Musculoskeletal: No Gait Disturbance, No Joint Pain, No Joint Stiffness, No Joint Swelling, No Muscle Pain, No Muscular Weakness, No Pain In:, No Swelling In:, No Other Neurological: No Behavorial Changes, No Bowel/Bladder ControlChng, No Confusion, No Dizziness, No Gait Disturbance, No Headaches, No Impaired Coord/b alance, No Memory Loss, No Numbness/Tingling, No Seizures, No Speech Problems, No Tremors, No Visual Changes, No Weakness, No Other Skin: No Dry Skin, No Eczema, No Hair Changes, No Lumps, No Mole Changes, No Mottling, No Nail Changes, No Pruritus, No Rash, No Skin Lesion Changes, No Other, No Acne Physical Exam General: Alert, Oriented X3, Cooperative, No acute distress HEENT: Atraumatic Lungs: Clear to auscultation Heart: Regular rate Abdomen: Soft, No tenderness Extremities: No clubbing, No cyanosis Skin: No rashes Neuro: Normal speech, Strength at 5/5 X4 ext Psych/Mental Status: Mental status NL MUSCULOSKELETAL: No deformity Vitals VITALS Vital Signs Date Time Temp Pulse Resp B/P (MAP) Pulse Ox O2 Delivery O2 Flow Rate FiO2 02/16/21 07:15 98.5 74 18 89/54 (66) 98 Room Air 98.5 Labs Labs Laboratory Tests Test 02/15/21 18:00 02/15/21 19:00 02/15/21 21:21 02/16/21 05:15 White Blood Count 8.9 x10^3/uL (4.0-11.0) 4.3 x10^3/uL (4.0-11.0) Red Blood Count 4.73 x10^6/uL (3.50-5.40) 3.73 x10^6/uL (3.50-5.40) Hemoglobin 13.7 g/dL (12.0-15.5) 10.7 g/dL (12.0-15.5) Hematocrit 40.4 % (36.0-47.0) 32.3 % (36.0-47.0) Mean Corpuscular Volume 85 fL (79-100) 87 fL (79-100) Mean Corpuscular Hemoglobin 29 pg (25-35) 29 pg (25-35) Mean Corpuscular Hemoglobin Concent 34 g/dL (31-37) 33 g/dL (31-37) Red Cell Distribution Width 17.1 % (11.5-14.5) 17.4 % (11.5-14.5) Platelet Count 264 x10^3/uL (140-400) 217 x10^3/uL (140-400) Neutrophils (%) (Auto) 88 % (31-73) 67 % (31-73) Lymphocytes (%) (Auto) 4 % (24-48) 13 % (24-48) Monocytes (%) (Auto) 7 % (0-9) 15 % (0-9) Eosinophils (%) (Auto) 0 % (0-3) 4 % (0-3) Basophils (%) (Auto) 0 % (0-3) 0 % (0-3) Neutrophils # (Auto) 7.8 x10^3/uL (1.8-7.7) 2.9 x10^3/uL (1.8-7.7) Lymphocytes # (Auto) 0.4 x10^3/uL (1.0-4.8) 0.6 x10^3/uL (1.0-4.8) Monocytes # (Auto) 0.6 x10^3/uL (0.0-1.1) 0.7 x10^3/uL (0.0-1.1) Eosinophils # (Auto) 0.0 x10^3/uL (0.0-0.7) 0.2 x10^3/uL (0.0-0.7) Basophils # (Auto) 0.0 x10^3/uL (0.0-0.2) 0.0 x10^3/uL (0.0-0.2) Sodium Level 137 mmol/L (136-145) 143 mmol/L (136-145) Potassium Level 4.2 mmol/L (3.5-5.1) 3.8 mmol/L (3.5-5.1) Chloride Level 104 mmol/L (98-107) 111 mmol/L (98-107) Carbon Dioxide Level 27 mmol/L (21-32) 25 mmol/L (21-32) Anion Gap 6 (6-14) 7 (6-14) Blood Urea Nitrogen 14 mg/dL (7-20) 11 mg/dL (7-20) Creatinine 1.0 mg/dL (0.6-1.0) 0.9 mg/dL (0.6-1.0) Estimated GFR (Cockcroft-Gault) 57.8 65.2 BUN/Creatinine Ratio 14 (6-20) 12 (6-20) Glucose Level 102 mg/dL (70-99) 85 mg/dL (70-99) Lactic Acid Level 1.4 mmol/L (0.4-2.0) Calcium Level 8.8 mg/dL (8.5-10.1) 7.1 mg/dL (8.5-10.1) Magnesium Level 2.0 mg/dL (1.8-2.4) Total Bilirubin 0.7 mg/dL (0.2-1.0) 0.7 mg/dL (0.2-1.0) Aspartate Amino Transf (AST/SGOT) 19 U/L (15-37) 16 U/L (15-37) Alanine Aminotransferase (ALT/SGPT) 24 U/L (14-59) 21 U/L (14-59) Alkaline Phosphatase 67 U/L (46-116) 49 U/L (46-116) Total Protein 6.5 g/dL (6.4-8.2) 4.7 g/dL (6.4-8.2) Albumin 3.2 g/dL (3.4-5.0) 2.2 g/dL (3.4-5.0) Albumin/Globulin Ratio 1.0 (1.0-1.7) 0.9 (1.0-1.7) Lipase 102 U/L (73-393) Urine Collection Type Unknown Urine Color Yellow Urine Clarity Clear Urine pH 5.5 (<5.0-8.0) Urine Specific [place] 1.020 (1.000-1.030) Urine Protein Negative mg/dL (NEG-TRACE) Urine Glucose (UA) Negative mg/dL (NEG) Urine Ketones (Stick) 40 mg/dL (NEG) Urine Blood Negative (NEG) Urine Nitrite Negative (NEG) Urine Bilirubin Small (NEG) Urine Urobilinogen Dipstick 0.2 mg/dL (0.2 mg/dL) Urine Leukocyte Esterase Negative (NEG) Urine RBC 0 /HPF (0-2) Urine WBC 1-4 /HPF (0-4) Urine Squamous Epithelial Cells Mod /LPF Urine Bacteria Few /HPF (0-FEW) Urine Mucus Mod /LPF SARS-CoV-2 Antigen (Rapid) Negative (NEGATIVE) Laboratory Tests Test 02/15/21 18:00 02/15/21 19:00 02/15/21 21:21 02/16/21 05:15 White Blood Count 8.9 x10^3/uL (4.0-11.0) 4.3 x10^3/uL (4.0-11.0) Red Blood Count 4.73 x10^6/uL (3.50-5.40) 3.73 x10^6/uL (3.50-5.40) Hemoglobin 13.7 g/dL (12.0-15.5) 10.7 g/dL (12.0-15.5) Hematocrit 40.4 % (36.0-47.0) 32.3 % (36.0-47.0) Mean Corpuscular Volume 85 fL (79-100) 87 fL (79-100) Mean Corpuscular Hemoglobin 29 pg (25-35) 29 pg (25-35) Mean Corpuscular Hemoglobin Concent 34 g/dL (31-37) 33 g/dL (31-37) Red Cell Distribution Width 17.1 % (11.5-14.5) 17.4 % (11.5-14.5) Platelet Count 264 x10^3/uL (140-400) 217 x10^3/uL (140-400) Neutrophils (%) (Auto) 88 % (31-73) 67 % (31-73) Lymphocytes (%) (Auto) 4 % (24-48) 13 % (24-48) Monocytes (%) (Auto) 7 % (0-9) 15 % (0-9) Eosinophils (%) (Auto) 0 % (0-3) 4 % (0-3) Basophils (%) (Auto) 0 % (0-3) 0 % (0-3) Neutrophils # (Auto) 7.8 x10^3/uL (1.8-7.7) 2.9 x10^3/uL (1.8-7.7) Lymphocytes # (Auto) 0.4 x10^3/uL (1.0-4.8) 0.6 x10^3/uL (1.0-4.8) Monocytes # (Auto) 0.6 x10^3/uL (0.0-1.1) 0.7 x10^3/uL (0.0-1.1) Eosinophils # (Auto) 0.0 x10^3/uL (0.0-0.7) 0.2 x10^3/uL (0.0-0.7) Basophils # (Auto) 0.0 x10^3/uL (0.0-0.2) 0.0 x10^3/uL (0.0-0.2) Sodium Level 137 mmol/L (136-145) 143 mmol/L (136-145) Potassium Level 4.2 mmol/L (3.5-5.1) 3.8 mmol/L (3.5-5.1) Chloride Level 104 mmol/L (98-107) 111 mmol/L (98-107) Carbon Dioxide Level 27 mmol/L (21-32) 25 mmol/L (21-32) Anion Gap 6 (6-14) 7 (6-14) Blood Urea Nitrogen 14 mg/dL (7-20) 11 mg/dL (7-20) Creatinine 1.0 mg/dL (0.6-1.0) 0.9 mg/dL (0.6-1.0) Estimated GFR (Cockcroft-Gault) 57.8 65.2 BUN/Creatinine Ratio 14 (6-20) 12 (6-20) Glucose Level 102 mg/dL (70-99) 85 mg/dL (70-99) Lactic Acid Level 1.4 mmol/L (0.4-2.0) Calcium Level 8.8 mg/dL (8.5-10.1) 7.1 mg/dL (8.5-10.1) Magnesium Level 2.0 mg/dL (1.8-2.4) Total Bilirubin 0.7 mg/dL (0.2-1.0) 0.7 mg/dL (0.2-1.0) Aspartate Amino Transf (AST/SGOT) 19 U/L (15-37) 16 U/L (15-37) Alanine Aminotransferase (ALT/SGPT) 24 U/L (14-59) 21 U/L (14-59) Alkaline Phosphatase 67 U/L (46-116) 49 U/L (46-116) Total Protein 6.5 g/dL (6.4-8.2) 4.7 g/dL (6.4-8.2) Albumin 3.2 g/dL (3.4-5.0) 2.2 g/dL (3.4-5.0) Albumin/Globulin Ratio 1.0 (1.0-1.7) 0.9 (1.0-1.7) Lipase 102 U/L (73-393) Urine Collection Type Unknown Urine Color Yellow Urine Clarity Clear Urine pH 5.5 (<5.0-8.0) Urine Specific [place] 1.020 (1.000-1.030) Urine Protein Negative mg/dL (NEG-TRACE) Urine Glucose (UA) Negative mg/dL (NEG) Urine Ketones (Stick) 40 mg/dL (NEG) Urine Blood Negative (NEG) Urine Nitrite Negative (NEG) Urine Bilirubin Small (NEG) Urine Urobilinogen Dipstick 0.2 mg/dL (0.2 mg/dL) Urine Leukocyte Esterase Negative (NEG) Urine RBC 0 /HPF (0-2) Urine WBC 1-4 /HPF (0-4) Urine Squamous Epithelial Cells Mod /LPF Urine Bacteria Few /HPF (0-FEW) Urine Mucus Mod /LPF SARS-CoV-2 Antigen (Rapid) Negative (NEGATIVE) Assessment/Plan Assessment/Plan 55 year old female with abdominal pain, vomiting, history of Crohn's disease, prior bowel resection. The CT raises concern for a possible partial SBO with some thickening of the small bowel. Recommend consult Dr Elena for GI, ?Crohn's treatment. May benefit from SB series, pt wishes to hold off on this for now. We will follow EMILY MONTES MD Feb 16, 2021 09:48
[2021-02-16] MEDS: IV NORMAL SALINE 1000ML BAG 1,000 ML IV SCH (10:05)
[2021-02-16 10:58] VITALS: BP 95/61
--- NOTE | 2021-02-16 12:05 | NUR ---
SW following. Chart reviewed, pt from home with spouse, room air, NPO, COVID-19 negative. Surgery and GI following. No SW needs at this time. SW will continue to follow.
--- NOTE | 2021-02-16 13:40 | HP ---
DATE OF SERVICE: 02/16/2021 ADMIT DATE: 02/15/2021 CHIEF COMPLAINT: She complained of abdominal pain. HISTORY OF PRESENT ILLNESS: The patient is a pleasant 55-year-old female who presents to the ER with abdominal pain. She has a long history of Crohn's disease. The pain is crampy. It is across the mid abdomen. She has not passed any gas and no stool. I discussed the case with ER physician. We admitted the patient with consultation to General Surgery and GI. PAST MEDICAL AND SURGICAL HISTORY: Crohn's disease, laparoscopic ileocolic resection, hip replacement, abdominoplasty, GERD, allergic rhinitis. ALLERGIES: SULFA AND INFLIXIMAB. FAMILY HISTORY: Diabetes. SOCIAL HISTORY: She does not drink, smoke or take drugs. She works in construction. MEDICATIONS: Reviewed, please refer to the MRAD. REVIEW OF SYSTEMS: GENERAL: No history of weight change, weakness or fevers. SKIN: No bruising, hair changes or rashes. EYES: No blurred, double or loss of vision. NOSE AND THROAT: No history of nosebleeds, hoarseness or sore throat. HEART: No history of palpitations, chest pain or shortness of breath on exertion. LUNGS: Denies cough, hemoptysis, wheezing or shortness of breath. GASTROINTESTINAL: She complains of slight abdominal pain, but has improved a lot. She actually passed some gases as well. GENITOURINARY: No history of frequency, urgency, hesitancy or nocturia. NEUROLOGIC: Denies history of numbness, tingling, tremor or weakness. PSYCHIATRIC: No history of panic, anxiety or depression. ENDOCRINE: No history of heat or cold intolerance, polyuria or polydipsia. EXTREMITIES: Denies muscle weakness, joint pain, pain on walking or stiffness. PHYSICAL EXAMINATION: VITALS: Within normal limits and are stable. GENERAL: No apparent distress. Alert and oriented. HEENT: Normal cephalic atraumatic, external auditory canals are patent EYES: Extraocular muscles are intact, pupils are equally round and reactive to light and accommodation MUSCULOSKELETAL: Well developed, well nourished, good range of motion ENDOCRINE: No thyromegaly was palpated LYMPHATICS: No cervical chain or axillary nodes were noted HEMATOPOIETIC: No bruising NECK: Supple, no JVD, no thyromegaly was noted. LUNGS: Clear to auscultation in all lung gallego without rhonchi or wheezing. HEART: RRR, S1, S2 present. Peripheral pulses intact, no obvious murmurs were noted. ABDOMEN: Soft, nontender. Positive bowel sounds no organomegaly, normal bowel sounds. EXTREMITIES: Without any cyanosis, clubbing, or edema. Pedal pulses intact, Homans sign is negative. NEUROLOGIC: Normal speech, normal tone. A and O x 3, moves all extremities, no obvious focal deficits. PSYCHIATRIC: Normal affect, normal mood. Stable. SKIN: No ulcerations or rashes, good skin turgor, no jaundice. VASCULAR: Good capillary refill, neurovascular bundle appears to be intact. LABORATORY DATA: White count 4, hemoglobin 10.7, platelets 217. Electrolytes are normal. CT of the abdomen shows some colonic thickening suspicious for small-bowel obstruction. ASSESSMENT AND PLAN: Bowel obstruction secondary to Crohn's disease. The patient has been admitted. We are consulting Gastrointestinal and General Surgery. She is n.p.o. Home meds. Deep venous thrombosis prophylaxis. Full code. We started her on p.r.n. Dilaudid, p.r.n. Zofran, p.r.n. Tylenol, p.r.n. Benadryl, p.r.n. fentanyl. Await subspecialist's input. SEBAS/MIKE/ALE DR: SEBAS/faustina TID: [id number]
--- NOTE | 2021-02-16 13:45 | PDOC2 ---
GI CONSULT Date of Service: DATE: 02/16/21 TIME: 13:14 Reason For Consult: Crohn's, SBO HPI: HPI: 55 y/o female admitted through ER yesterday. Acute onset of upper abdominal burning yesterday - not improved w/ Tums or pantoprazole. Progressed to vomiting - thought briefly improved w/ Phenergan suppository and Toradol, but then recurred when tried to eat crackers and drink Sprite. Pain became severe and spread across lower abdomen, appeared distended and felt "hard." Also associated w/ loud gurgling. Last stooled yesterday (small, prior to admission). H/o Crohn's disease diagnosed in 1988 s/p ileocolonic resection in 2008 (which was a planned surgery for known stricture monitored for years previously). Past treatment w/ steroids, Pentasa, Remicade (reports allergy to this), Humira (also now w/ allergy), and most recently Cimzia, but off treatment completely x 6-7 years. No previous h/o bowel obstructions - this pain was worse/more persistent compared stricture-related pain prior to surgery. CT in ER showed "...dilatation of small bowel loops with bowel wall thickening within the left side abdomen and the lower abdomen. There is a caliber change present within the pelvis. The findings are consistent with a mid to distal small bowel obstruction." She is feeling much better today. No recurrent n/v, pain improved (hasn't needed pain medication since last night), and passed some flatus earlier today. No stool. Surgery saw earlier - SBS discussed; her preference is to hold off for now (due to concern for not being able to tolerate/drink contrast). Just now trying a few sips of clear liquids. Would like to go home soon. Occasional GERD symptoms (upper abdominal burning) - takes pantoprazole PRN. No dysphagia, hematemesis, hematochezia, melena, change in appetite, or weight loss. Has loose stools not infrequently - at least once weekly. Reports normal EGD in 2019. Colonoscopy 01/[address] Elena for screening w/ h/o Crohn's showed non- bleeding internal hemorrhoids and revised end-to-side ileo-colonic anastomosis. Random biopsies from surgical stoma to splenic flexure showed acute ulcer with fibropurulent debris and adjacent colonic mucosa with edema and epithelial repair (ddx: Crohn's, benign mucosal trauma/prolapse at stoma, infection, ischemia, and NSAID effect - no viral inclusions or granulomas, no pseudomembrane formation, no evidence of dysplasia or malignancy). Random biopsies from splenic flexure to rectum were unremarkable. No GB, liver, pancreas, or PUD history. Takes Advil or Aleve fairly regularly for back pain. Last took antibiotics for dental appointment around 10/2020. PMH: PMH: per HPI x 2, ileocolic resection (appendectomy), hysterectomy, left inguinal hernia repair, right hip replacement, repair of rectal ulcers age 17 FH: Family History: CVA, DM Social History: Smoke: No ALCOHOL: social Drugs: None ROS: GEN: Denies fevers, chills, sweats HEENT: Denies blurred vision, sore throat CV: Denies chest pain RESP: Denies shortness of air, cough GI: Per HPI : Denies hematuria, dysuria ENDO: Denies weight changes NEURO: Denies confusion, dizziness MSK: +back pain SKIN: Denies jaundice, pruritus Vitals: Vitals: Vital Signs Date Time Temp Pulse Resp B/P (MAP) Pulse Ox O2 Delivery O2 Flow Rate FiO2 02/16/21 10:58 98.0 59 18 95/61 (72) 98 Room Air 98.0 Labs: Labs: Laboratory Tests Test 02/15/21 18:00 02/15/21 19:00 02/15/21 21:21 02/16/21 05:15 White Blood Count 8.9 x10^3/uL (4.0-11.0) 4.3 x10^3/uL (4.0-11.0) Red Blood Count 4.73 x10^6/uL (3.50-5.40) 3.73 x10^6/uL (3.50-5.40) Hemoglobin 13.7 g/dL (12.0-15.5) 10.7 g/dL (12.0-15.5) Hematocrit 40.4 % (36.0-47.0) 32.3 % (36.0-47.0) Mean Corpuscular Volume 85 fL (79-100) 87 fL (79-100) Mean Corpuscular Hemoglobin 29 pg (25-35) 29 pg (25-35) Mean Corpuscular Hemoglobin Concent 34 g/dL (31-37) 33 g/dL (31-37) Red Cell Distribution Width 17.1 % (11.5-14.5) 17.4 % (11.5-14.5) Platelet Count 264 x10^3/uL (140-400) 217 x10^3/uL (140-400) Neutrophils (%) (Auto) 88 % (31-73) 67 % (31-73) Lymphocytes (%) (Auto) 4 % (24-48) 13 % (24-48) Monocytes (%) (Auto) 7 % (0-9) 15 % (0-9) Eosinophils (%) (Auto) 0 % (0-3) 4 % (0-3) Basophils (%) (Auto) 0 % (0-3) 0 % (0-3) Neutrophils # (Auto) 7.8 x10^3/uL (1.8-7.7) 2.9 x10^3/uL (1.8-7.7) Lymphocytes # (Auto) 0.4 x10^3/uL (1.0-4.8) 0.6 x10^3/uL (1.0-4.8) Monocytes # (Auto) 0.6 x10^3/uL (0.0-1.1) 0.7 x10^3/uL (0.0-1.1) Eosinophils # (Auto) 0.0 x10^3/uL (0.0-0.7) 0.2 x10^3/uL (0.0-0.7) Basophils # (Auto) 0.0 x10^3/uL (0.0-0.2) 0.0 x10^3/uL (0.0-0.2) Sodium Level 137 mmol/L (136-145) 143 mmol/L (136-145) Potassium Level 4.2 mmol/L (3.5-5.1) 3.8 mmol/L (3.5-5.1) Chloride Level 104 mmol/L (98-107) 111 mmol/L (98-107) Carbon Dioxide Level 27 mmol/L (21-32) 25 mmol/L (21-32) Anion Gap 6 (6-14) 7 (6-14) Blood Urea Nitrogen 14 mg/dL (7-20) 11 mg/dL (7-20) Creatinine 1.0 mg/dL (0.6-1.0) 0.9 mg/dL (0.6-1.0) Estimated GFR (Cockcroft-Gault) 57.8 65.2 BUN/Creatinine Ratio 14 (6-20) 12 (6-20) Glucose Level 102 mg/dL (70-99) 85 mg/dL (70-99) Lactic Acid Level 1.4 mmol/L (0.4-2.0) Calcium Level 8.8 mg/dL (8.5-10.1) 7.1 mg/dL (8.5-10.1) Magnesium Level 2.0 mg/dL (1.8-2.4) Total Bilirubin 0.7 mg/dL (0.2-1.0) 0.7 mg/dL (0.2-1.0) Aspartate Amino Transf (AST/SGOT) 19 U/L (15-37) 16 U/L (15-37) Alanine Aminotransferase (ALT/SGPT) 24 U/L (14-59) 21 U/L (14-59) Alkaline Phosphatase 67 U/L (46-116) 49 U/L (46-116) Total Protein 6.5 g/dL (6.4-8.2) 4.7 g/dL (6.4-8.2) Albumin 3.2 g/dL (3.4-5.0) 2.2 g/dL (3.4-5.0) Albumin/Globulin Ratio 1.0 (1.0-1.7) 0.9 (1.0-1.7) Lipase 102 U/L (73-393) Urine Collection Type Unknown Urine Color Yellow Urine Clarity Clear Urine pH 5.5 (<5.0-8.0) Urine Specific [place] 1.020 (1.000-1.030) Urine Protein Negative mg/dL (NEG-TRACE) Urine Glucose (UA) Negative mg/dL (NEG) Urine Ketones (Stick) 40 mg/dL (NEG) Urine Blood Negative (NEG) Urine Nitrite Negative (NEG) Urine Bilirubin Small (NEG) Urine Urobilinogen Dipstick 0.2 mg/dL (0.2 mg/dL) Urine Leukocyte Esterase Negative (NEG) Urine RBC 0 /HPF (0-2) Urine WBC 1-4 /HPF (0-4) Urine Squamous Epithelial Cells Mod /LPF Urine Bacteria Few /HPF (0-FEW) Urine Mucus Mod /LPF SARS-CoV-2 RNA (VEE) Negative (Negative) SARS-CoV-2 Antigen (Rapid) Negative (NEGATIVE) Allergies: Coded Allergies: Sulfa (Sulfonamide Antibiotics) (Verified Allergy, Severe, SHORTNESS OF BREATH, 02/15/21) infliximab (Verified Allergy, Severe, ANAPHYLAXIS, 02/15/21) Medications: Current Medications Medications (Trade) Dose Ordered Sig/Evelio Route PRN Reason Start Time Stop Time Status Last Admin Dose Admin Sodium Chloride 1,000 ml @ 1,000 mls/hr 1X ONCE IV 02/15/21 17:45 02/15/21 18:44 DC 02/15/21 17:44 Ondansetron HCl (Zofran) 4 mg 1X ONCE IVP 02/15/21 17:45 02/15/21 17:46 DC 02/15/21 17:45 Iohexol (Omnipaque 300 Mg/ml) 60 ml 1X ONCE IV 02/15/21 19:15 02/15/21 19:16 DC 02/15/21 19:22 Sodium Chloride 1,000 ml @ 1,000 mls/hr 1X ONCE IV 02/15/21 19:45 02/15/21 20:44 DC 02/15/21 19:45 Fentanyl Citrate (Fentanyl 2ml Vial) 50 mcg PRN Q1HR PRN IVP SEVERE PAIN 02/15/21 20:45 02/15/21 20:57 Sodium Chloride 1,000 ml @ 75 mls/hr [id number] IV 02/15/21 20:45 02/16/21 20:44 02/16/21 10:05 Imaging: Imaging: CT A/P 02/15/21 FINDINGS: The liver and spleen and pancreas are unremarkable. The gallbladder is normal and no extrahepatic biliary ductal dilatation is seen. No adrenal mass is evident. Both kidneys are normal without hydronephrosis or hydroureter. Distal right ureter and the right side of the anatomic pelvis are obscured from streaking artifact from right hip prosthesis. Urinary bladder is not distended. No renal mass is seen. No urinary tract stone is evident. The uterus appears to be surgically absent. No focal aneurysmal dilatation of the abdominal aorta is seen. No enlarged abdominal or pelvic lymphadenopathy is seen. Ileocolostomy is apparent. There is dilatation of small bowel loops with bowel wall thickening within the left side abdomen and the lower abdomen. There is a caliber change present within the pelvis. The findings are consistent with a mid to distal small bowel obstruction. No free air or free fluid or mesenteric edema is seen. No lung base consolidation is evident. No lytic process is seen. IMPRESSION: Mid to distal small bowel obstruction. No free air or free fluid. PE: GEN: NAD - sitting in recliner, appears comfortable HEENT: Atraumatic, PERRL LUNGS: CTAB anteriorly HEART: RRR ABD: quiet BS - more to right, soft (she says still some possible firmness in lower abdomen), non-tender EXTREMITY: No edema SKIN: No rashes, no jaundice NEURO/PSYCH: A & O 3 A/P: A/P: Abdominal pain (upper and lower), vomiting, distention - resolving Anemia - no obvious GI bleeding Abnormal CT concerning for (partial?) SBO w/ SB thickening H/o Crohn's disease s/p ileocolonic resection, doing well off treatment x 6-7 years Occasional heartburn - takes PPI PRN, reports normal EGD in 2019 CRC screen - UTD (01/2020) Regular NSAID use COVID negative -- Symptoms improved - no vomiting and passing flatus, no stool. Pt prefers to avoid SBS for now. D/w Dr. Elena - start prednisone 10mg BID for several weeks. Our office can arrange follow-up appt after DC. Caution w/ diet - currently trying a few clears. Would not discharge until reliably eating. Checking anemia parameters for completeness. Would consider daily use of pantoprazole for h/o occasional GERD symptoms, NSAID use, and now PO steroids. QUINTIN VIRAMONTES Feb 16, 2021 13:45
[2021-02-16 15:18] VITALS: BP 120/55
[2021-02-16] MEDS: predniSONE 10 MG TABLET PO SCH ×2 (16:09→20:10)
[2021-02-16 19:38] VITALS: BP 114/69
[2021-02-16 22:59] VITALS: BP 107/64
[2021-02-16] MEDS: fentaNYL PF VIAL 100 MCG/2 ML VIAL IVP PRN (23:54)
[2021-02-17 03:25] VITALS: BP 105/63
[2021-02-17 05:47] LABS: BASO % 0 % (0-3); EOS % 0 % (0-3); HEMATOCRIT 32.1 % (36.0-47.0); HEMOGLOBIN 10.6 g/dL (12.0-15.5); LYMPH # 0.4 x10^3/uL (1.0-4.8); LYMPH % 11 % (24-48); MEAN CORPUSCULAR HEMOGLOBIN 29 pg (25-35); MEAN CORPUSCULAR HGB CONC 33 g/dL (31-37); MEAN CORPUSCULAR VOLUME 86 fL (79-100); MONO # 0.3 x10^3/uL (0.0-1.1); MONO % 8 % (0-9); NEUT # 2.8 x10^3/uL (1.8-7.7); NEUT % 80 % (31-73); PLATELET COUNT 209 x10^3/uL (140-400); RED BLOOD COUNT 3.72 x10^6/uL (3.50-5.40); RED CELL DISTRIBUTION WIDTH 16.8 % (11.5-14.5); WHITE BLOOD COUNT 3.5 x10^3/uL (4.0-11.0)
[2021-02-17 05:55] LABS: CALCIUM 7.5 mg/dL (8.5-10.1); CREATININE 0.7 mg/dL (0.6-1.0); GFR 87.2; POTASSIUM 4.3 mmol/L (3.5-5.1)
[2021-02-17 07:15] VITALS: BP 120/76
[2021-02-17] MEDS: predniSONE 10 MG TABLET PO SCH (08:43)
[2021-02-17] MEDS ORDERED: LIDOCAINE (700MG/PATCH) PATCH. TD ONE (08:45)
[2021-02-17] MEDS ORDERED: TESTOSTERONE PO SCH (09:00)
[2021-02-17] MEDS ORDERED: ESTROGEN ESTER PO SCH (09:00)
[2021-02-17] MEDS ORDERED: ERGOCALCIFEROL (VITAMIN D2) 50,000 UNIT CAPSULE. PO SCH (09:00)
--- NOTE | 2021-02-17 09:54 | PDOC ---
Date of Service: DATE: 02/17/21 TIME: 09:48 Subjective: Subjective: Chronic back pain is bothersome, but no abdominal pain. Tolerating some clear liquids without recurrent n/v. Passing flatus, no stool. Hesitant to proceed with SBS, some concern barium will slow things down more - maybe another day of steroids would be helpful? Objective: Objective: D/w Dr. Ordaz. Vital Signs: Vital Signs Date Time Temp Pulse Resp B/P (MAP) Pulse Ox O2 Delivery O2 Flow Rate FiO2 02/17/21 07:15 97.9 66 18 120/76 (91) 97 Room Air 97.9 Labs: Laboratory Tests Test 02/17/21 04:45 White Blood Count 3.5 x10^3/uL Red Blood Count 3.72 x10^6/uL Hemoglobin 10.6 g/dL Hematocrit 32.1 % Mean Corpuscular Volume 86 fL Mean Corpuscular Hemoglobin 29 pg Mean Corpuscular Hemoglobin Concent 33 g/dL Red Cell Distribution Width 16.8 % Platelet Count 209 x10^3/uL Neutrophils (%) (Auto) 80 % Lymphocytes (%) (Auto) 11 % Monocytes (%) (Auto) 8 % Eosinophils (%) (Auto) 0 % Basophils (%) (Auto) 0 % Neutrophils # (Auto) 2.8 x10^3/uL Lymphocytes # (Auto) 0.4 x10^3/uL Monocytes # (Auto) 0.3 x10^3/uL Eosinophils # (Auto) 0.0 x10^3/uL Basophils # (Auto) 0.0 x10^3/uL Sodium Level 142 mmol/L Potassium Level 4.3 mmol/L Chloride Level 108 mmol/L Carbon Dioxide Level 26 mmol/L Anion Gap 8 Blood Urea Nitrogen 7 mg/dL Creatinine 0.7 mg/dL Estimated GFR (Cockcroft-Gault) 87.2 Glucose Level 99 mg/dL Calcium Level 7.5 mg/dL PE: GEN: NAD - up in chair LUNGS: CTAB HEART: RRR ABD: S/ND/NT, a few quiet gurgles - more on left today NEURO/PSYCH: A & O 3 A/P: H/o Crohn's and resection, possible partial SBO -- Reviewed w/ Dr. Elena - hold off on SBS for now, continue prednisone and try suppository. Update: Nurse called at: 11:20 a.m. - pt reports stool after suppository, asking to advance diet and consider discharge. Reviewed w/ Dr. Elena again - okay to ADAT and DC per primary - d/w nurse and provided prednisone Rx. Our office will call to schedule follow-up appt. Note B12 deficient - also ordered B12 inj x 1. Justicifation of Admission Dx: Justifications for Admission: Justification of Admission Dx: Yes QUINTIN VIRAMONTES Feb 17, 2021 09:54
[2021-02-17] MEDS ORDERED: BISACODYL 10 MG SUPP.RECT. PR ONE (10:00)
[2021-02-17] MEDS ORDERED: PANTOPRAZOLE 40 MG TABLET.DR. PO SCH (10:00)
--- NOTE | 2021-02-17 10:34 | PDOC ---
[employer] PROGRESS NOTE Date of Service DOS: DATE: 02/17/21 TIME: 10:26 Chief Complaint Chief Complaint Probable Crohn's flare SBO Constipation History of Present Illness History of Present Illness Pt seen and examined Chart Reviewed Discussed w/RN Patient doing better today but constipated I called GI working to try suppository Vitals/I&O Vitals/I&O: Vital Signs Date Time Temp Pulse Resp B/P (MAP) Pulse Ox O2 Delivery O2 Flow Rate FiO2 02/17/21 07:15 97.9 66 18 120/76 (91) 97 Room Air 97.9 I & O 02/16/21 02/16/21 02/17/21 15:00 23:00 07:00 Intake Total 620 ml 180 ml 0 ml Balance 620 ml 180 ml 0 ml Physical Exam General: Alert, Oriented X3, Cooperative, No acute distress Heart: Regular rate Abdomen: Soft, No tenderness Extremities: No clubbing, No cyanosis Skin: No rashes Labs Labs: Laboratory Tests Test 02/17/21 04:45 White Blood Count 3.5 x10^3/uL (4.0-11.0) Red Blood Count 3.72 x10^6/uL (3.50-5.40) Hemoglobin 10.6 g/dL (12.0-15.5) Hematocrit 32.1 % (36.0-47.0) Mean Corpuscular Volume 86 fL (79-100) Mean Corpuscular Hemoglobin 29 pg (25-35) Mean Corpuscular Hemoglobin Concent 33 g/dL (31-37) Red Cell Distribution Width 16.8 % (11.5-14.5) Platelet Count 209 x10^3/uL (140-400) Neutrophils (%) (Auto) 80 % (31-73) Lymphocytes (%) (Auto) 11 % (24-48) Monocytes (%) (Auto) 8 % (0-9) Eosinophils (%) (Auto) 0 % (0-3) Basophils (%) (Auto) 0 % (0-3) Neutrophils # (Auto) 2.8 x10^3/uL (1.8-7.7) Lymphocytes # (Auto) 0.4 x10^3/uL (1.0-4.8) Monocytes # (Auto) 0.3 x10^3/uL (0.0-1.1) Eosinophils # (Auto) 0.0 x10^3/uL (0.0-0.7) Basophils # (Auto) 0.0 x10^3/uL (0.0-0.2) Sodium Level 142 mmol/L (136-145) Potassium Level 4.3 mmol/L (3.5-5.1) Chloride Level 108 mmol/L (98-107) Carbon Dioxide Level 26 mmol/L (21-32) Anion Gap 8 (6-14) Blood Urea Nitrogen 7 mg/dL (7-20) Creatinine 0.7 mg/dL (0.6-1.0) Estimated GFR (Cockcroft-Gault) 87.2 Glucose Level 99 mg/dL (70-99) Calcium Level 7.5 mg/dL (8.5-10.1) Assessment and Plan Assessmemt and Plan Problems Medical Problems: (1) Generalized abdominal pain Status: Acute (2) Nausea and vomiting Status: Acute Probable Crohn's flare SBO Constipation Plan: Working to try a suppository - Lidocaine patch for back pain - DVT Prophylaxis - Full Code - Encourage liquid intake - Await further GI recommendations Probable discharge later today Comment Review of Relevant I have reviewed the following items maria alejandra (where applicable) has been applied. Medications: Current Medications Medications (Trade) Dose Ordered Sig/Evelio Route PRN Reason Start Time Stop Time Status Last Admin Dose Admin Ergocalciferol (Vitamin D2) 50,000 unit WEEKLY PO 02/17/21 09:00 02/17/21 08:43 Prednisone (Prednisone) 10 mg BID PO 02/16/21 15:00 02/17/21 08:43 Lidocaine (Lidoderm) 1 patch 1X ONCE TD 02/17/21 08:45 02/17/21 08:46 DC 02/17/21 08:45 Justifications for Admission Other Justification NITA MCCLOUD III DO Feb 17, 2021 10:34
--- NOTE | 2021-02-17 11:02 | PDOC ---
SURGICAL PROGRESS NOTE DATE: 02/17/21 TIME: 11:01 Subjective overall does feel better + flatus, no stool, just had suppository placed taking some clears Vital Signs Vital Signs Date Time Temp Pulse Resp B/P (MAP) Pulse Ox O2 Delivery O2 Flow Rate FiO2 02/17/21 08:00 Room Air 02/17/21 07:15 97.9 66 18 120/76 (91) 97 97.9 I&O Intake and Output 02/17/21 07:00 Intake Total 800 ml Balance 800 ml Intake Oral 800 ml # Voids 4 General: Alert, Oriented X3, Cooperative Abdomen: Soft, Other (mildly distended ) Labs Laboratory Tests Test 02/15/21 18:00 02/15/21 19:00 02/15/21 21:21 02/16/21 05:15 White Blood Count 8.9 x10^3/uL (4.0-11.0) 4.3 x10^3/uL (4.0-11.0) Red Blood Count 4.73 x10^6/uL (3.50-5.40) 3.73 x10^6/uL (3.50-5.40) Hemoglobin 13.7 g/dL (12.0-15.5) 10.7 g/dL (12.0-15.5) Hematocrit 40.4 % (36.0-47.0) 32.3 % (36.0-47.0) Mean Corpuscular Volume 85 fL (79-100) 87 fL (79-100) Mean Corpuscular Hemoglobin 29 pg (25-35) 29 pg (25-35) Mean Corpuscular Hemoglobin Concent 34 g/dL (31-37) 33 g/dL (31-37) Red Cell Distribution Width 17.1 % (11.5-14.5) 17.4 % (11.5-14.5) Platelet Count 264 x10^3/uL (140-400) 217 x10^3/uL (140-400) Neutrophils (%) (Auto) 88 % (31-73) 67 % (31-73) Lymphocytes (%) (Auto) 4 % (24-48) 13 % (24-48) Monocytes (%) (Auto) 7 % (0-9) 15 % (0-9) Eosinophils (%) (Auto) 0 % (0-3) 4 % (0-3) Basophils (%) (Auto) 0 % (0-3) 0 % (0-3) Neutrophils # (Auto) 7.8 x10^3/uL (1.8-7.7) 2.9 x10^3/uL (1.8-7.7) Lymphocytes # (Auto) 0.4 x10^3/uL (1.0-4.8) 0.6 x10^3/uL (1.0-4.8) Monocytes # (Auto) 0.6 x10^3/uL (0.0-1.1) 0.7 x10^3/uL (0.0-1.1) Eosinophils # (Auto) 0.0 x10^3/uL (0.0-0.7) 0.2 x10^3/uL (0.0-0.7) Basophils # (Auto) 0.0 x10^3/uL (0.0-0.2) 0.0 x10^3/uL (0.0-0.2) Sodium Level 137 mmol/L (136-145) 143 mmol/L (136-145) Potassium Level 4.2 mmol/L (3.5-5.1) 3.8 mmol/L (3.5-5.1) Chloride Level 104 mmol/L (98-107) 111 mmol/L (98-107) Carbon Dioxide Level 27 mmol/L (21-32) 25 mmol/L (21-32) Anion Gap 6 (6-14) 7 (6-14) Blood Urea Nitrogen 14 mg/dL (7-20) 11 mg/dL (7-20) Creatinine 1.0 mg/dL (0.6-1.0) 0.9 mg/dL (0.6-1.0) Estimated GFR (Cockcroft-Gault) 57.8 65.2 BUN/Creatinine Ratio 14 (6-20) 12 (6-20) Glucose Level 102 mg/dL (70-99) 85 mg/dL (70-99) Lactic Acid Level 1.4 mmol/L (0.4-2.0) Calcium Level 8.8 mg/dL (8.5-10.1) 7.1 mg/dL (8.5-10.1) Magnesium Level 2.0 mg/dL (1.8-2.4) Total Bilirubin 0.7 mg/dL (0.2-1.0) 0.7 mg/dL (0.2-1.0) Aspartate Amino Transf (AST/SGOT) 19 U/L (15-37) 16 U/L (15-37) Alanine Aminotransferase (ALT/SGPT) 24 U/L (14-59) 21 U/L (14-59) Alkaline Phosphatase 67 U/L (46-116) 49 U/L (46-116) Total Protein 6.5 g/dL (6.4-8.2) 4.7 g/dL (6.4-8.2) Albumin 3.2 g/dL (3.4-5.0) 2.2 g/dL (3.4-5.0) Albumin/Globulin Ratio 1.0 (1.0-1.7) 0.9 (1.0-1.7) Lipase 102 U/L (73-393) Urine Collection Type Unknown Urine Color Yellow Urine Clarity Clear Urine pH 5.5 (<5.0-8.0) Urine Specific [place] 1.020 (1.000-1.030) Urine Protein Negative mg/dL (NEG-TRACE) Urine Glucose (UA) Negative mg/dL (NEG) Urine Ketones (Stick) 40 mg/dL (NEG) Urine Blood Negative (NEG) Urine Nitrite Negative (NEG) Urine Bilirubin Small (NEG) Urine Urobilinogen Dipstick 0.2 mg/dL (0.2 mg/dL) Urine Leukocyte Esterase Negative (NEG) Urine RBC 0 /HPF (0-2) Urine WBC 1-4 /HPF (0-4) Urine Squamous Epithelial Cells Mod /LPF Urine Bacteria Few /HPF (0-FEW) Urine Mucus Mod /LPF SARS-CoV-2 RNA (VEE) Negative (Negative) SARS-CoV-2 Antigen (Rapid) Negative (NEGATIVE) Test 02/17/21 04:45 White Blood Count 3.5 x10^3/uL (4.0-11.0) Red Blood Count 3.72 x10^6/uL (3.50-5.40) Hemoglobin 10.6 g/dL (12.0-15.5) Hematocrit 32.1 % (36.0-47.0) Mean Corpuscular Volume 86 fL (79-100) Mean Corpuscular Hemoglobin 29 pg (25-35) Mean Corpuscular Hemoglobin Concent 33 g/dL (31-37) Red Cell Distribution Width 16.8 % (11.5-14.5) Platelet Count 209 x10^3/uL (140-400) Neutrophils (%) (Auto) 80 % (31-73) Lymphocytes (%) (Auto) 11 % (24-48) Monocytes (%) (Auto) 8 % (0-9) Eosinophils (%) (Auto) 0 % (0-3) Basophils (%) (Auto) 0 % (0-3) Neutrophils # (Auto) 2.8 x10^3/uL (1.8-7.7) Lymphocytes # (Auto) 0.4 x10^3/uL (1.0-4.8) Monocytes # (Auto) 0.3 x10^3/uL (0.0-1.1) Eosinophils # (Auto) 0.0 x10^3/uL (0.0-0.7) Basophils # (Auto) 0.0 x10^3/uL (0.0-0.2) Sodium Level 142 mmol/L (136-145) Potassium Level 4.3 mmol/L (3.5-5.1) Chloride Level 108 mmol/L (98-107) Carbon Dioxide Level 26 mmol/L (21-32) Anion Gap 8 (6-14) Blood Urea Nitrogen 7 mg/dL (7-20) Creatinine 0.7 mg/dL (0.6-1.0) Estimated GFR (Cockcroft-Gault) 87.2 Glucose Level 99 mg/dL (70-99) Calcium Level 7.5 mg/dL (8.5-10.1) Iron Level 38 ug/dL (50-170) Total Iron Binding Capacity 324 ug/dL (250-450) Iron Saturation 12 % (15-34) Laboratory Tests Test 02/17/21 04:45 White Blood Count 3.5 x10^3/uL (4.0-11.0) Red Blood Count 3.72 x10^6/uL (3.50-5.40) Hemoglobin 10.6 g/dL (12.0-15.5) Hematocrit 32.1 % (36.0-47.0) Mean Corpuscular Volume 86 fL (79-100) Mean Corpuscular Hemoglobin 29 pg (25-35) Mean Corpuscular Hemoglobin Concent 33 g/dL (31-37) Red Cell Distribution Width 16.8 % (11.5-14.5) Platelet Count 209 x10^3/uL (140-400) Neutrophils (%) (Auto) 80 % (31-73) Lymphocytes (%) (Auto) 11 % (24-48) Monocytes (%) (Auto) 8 % (0-9) Eosinophils (%) (Auto) 0 % (0-3) Basophils (%) (Auto) 0 % (0-3) Neutrophils # (Auto) 2.8 x10^3/uL (1.8-7.7) Lymphocytes # (Auto) 0.4 x10^3/uL (1.0-4.8) Monocytes # (Auto) 0.3 x10^3/uL (0.0-1.1) Eosinophils # (Auto) 0.0 x10^3/uL (0.0-0.7) Basophils # (Auto) 0.0 x10^3/uL (0.0-0.2) Sodium Level 142 mmol/L (136-145) Potassium Level 4.3 mmol/L (3.5-5.1) Chloride Level 108 mmol/L (98-107) Carbon Dioxide Level 26 mmol/L (21-32) Anion Gap 8 (6-14) Blood Urea Nitrogen 7 mg/dL (7-20) Creatinine 0.7 mg/dL (0.6-1.0) Estimated GFR (Cockcroft-Gault) 87.2 Glucose Level 99 mg/dL (70-99) Calcium Level 7.5 mg/dL (8.5-10.1) Iron Level 38 ug/dL (50-170) Total Iron Binding Capacity 324 ug/dL (250-450) Iron Saturation 12 % (15-34) Problem List Problems Medical Problems: (1) Generalized abdominal pain Status: Acute (2) Nausea and vomiting Status: Acute Assessment/Plan pt hesitant to pursue SBS--d/w GI, steroids and suppository today Justicifation of Admission Dx: Justifications for Admission: Justification of Admission Dx: Yes RICHI [employer] Feb 17, 2021 11:02
[2021-02-17 11:15] VITALS: BP 118/62
[2021-02-17] MEDS ORDERED: CYANOCOBALAMIN (VITAMIN B-12) 1,000 MCG/ML VIAL. IM ONE (11:30)
[2021-02-17] MEDS ORDERED: PRED-220 PO (11:38)
[2021-02-17] MEDS ORDERED: PANT40TA77 PO (11:38)
--- NOTE | 2021-02-17 11:52 | NUR ---
SW following. Discussed with RN, discharge order for home with self care.
== END 2021-02-17 15:05 | disposition home or self-care (01) | DRG 387 ==
LOC: ER 16:58 → 4 NORTH 20:37
PROVIDERS: ADMIT Internal Medicine; ATTEND Internal Medicine
DX: K50.912 Crohn's disease, unspecified, with intestinal obstruction (principal); E53.8 Deficiency of other specified B group vitamins; G89.29 Other chronic pain; Z82.3 Family history of stroke; Z83.3 Family history of diabetes mellitus; Z90.49 Acquired absence of other specified parts of digestive tract; Z90.710 Acquired absence of both cervix and uterus; Z96.641 Presence of right artificial hip joint; K21.9 Gastro-esophageal reflux disease without esophagitis; Z88.2 Allergy status to sulfonamides; Z88.8 Allergy status to other drugs, medicaments and biological substances; Z20.822 Contact with and (suspected) exposure to COVID-19; Z79.899 Other long term (current) drug therapy
CPT/HCPCS: 36415; 74177; 80048; 80053; 81001; 82607; 83540; 83550; 83605; 83690; 83735; 85025; 87426; 96361; 96374; J2405; J3010; J3420; J7030; J7512; Q9967; U0003; U0005; 99285-25; G0378

== ENCOUNTER → 2021-02-25 | Outpatient (CLI) | payer OTHER ==
[2021-02-17 11:15] VITALS: BP 118/62
[~2021-02-25] MED LIST changes: +ACET325T21 AC; +CETI10TA16 PO; +IBUP200T58 PO; +NAPR-514 PO; +ONDA-84 PO; +PRED-220 PO
--- NOTE | 2021-02-25 11:41 | KCIC ---
EXAM: SMALL BOWEL FOLLOW THROUGH CLINICAL HISTORY: Reason: Hx. Crohn's w/previous surgery, evaluate for small bowel obstruction. / Spl . Instructions: 6 sec fl, 3 images. / History: Lt. sided abdominal pain. COMPARISON: None available. TECHNIQUE: A small bowel follow-through study was performed. Barium contrast was ingested orally and multiple radiographs were taken at time intervals until barium reached the distal descending colon. Additional spot images were obtained during manual compression. FINDINGS: The hopper attendant film demonstrates a nonobstructive bowel gas pattern. Bowel anastomosis right mid abdomen. There are no abnormal calcifications projected in the region of the kidneys, bladder, or gallbladder. The serial films of barium traversing the small bowel to the cecum reveal decreased transit time. Con trast material is present in the colon after 30 minutes. Small bowel mucosal pattern and caliber is normal throughout. Small diverticulum is incidentally seen within the mid jejunal small bowel. There is no evidence of obstruction or filling defect. Relative increased fat is seen in the right lower quadrant with mild early small bowel displacement, possibly postsurgical or chronic manifestations of Crohn's disease. The terminal ileum appears normal. IMPRESSION: Unremarkable examination minimal small bowel mucosal pattern. No discrete stricture is identified. No evidence for obstruction. Electronically signed by: Demetrius Dela Cruz MD (02/25/2021 11:39 AM) [id number]
== END ==
LOC: KCIC 08:10
PROVIDERS: ATTEND Internal Medicine Gastroenterology
DX: K50.90 Crohn's disease, unspecified, without complications (principal); K56.609 Unspecified intestinal obstruction, unspecified as to partial versus complete obstruction
CPT/HCPCS: 74250